=== PATIENT | male | born 1980 | race Caucasian/White ===

== ENCOUNTER 2016-11-15 21:54 | Emergency (ER) | payer BC, OTHER ==
[~2016-11-15] VITALS: Ht 172.7 cm; Wt 75.0 kg
[~2016-11-15 21:54] MED LIST: BACTRIM DS 8001 TAB PO; CEPHALEXIN500 M1 PO; FLEXERIL10 MG PO; NKDA; NO HOME MEDICATIONS; NORCO 325 MG-7.1 TAB PO; PERCOCET 325 MG1 TA2 PO; SEPTRA DS 8001 TAB PO
[2016-11-15 21:57] VITALS: BP 126/78; TEMP 97.8
[2016-11-15] MEDS ORDERED: PERCOCET 325 MG1 TA2 PO (22:17)
[2016-11-15 22:29] VITALS: PULSE 92
== END 2016-11-15 22:29 | disposition home or self-care (01) ==
LOC: COL.ER 21:54
DX: M54.5 Low back pain (principal); Z87.39 Personal history of other diseases of the musculoskeletal system and connective tissue; Z98.52 Vasectomy status
CPT/HCPCS: J2270

== ENCOUNTER 2017-05-11 16:40 | Emergency (ER) | payer BC ==
[~2017-05-11] VITALS: Ht 172.7 cm; Wt 77.3 kg
[2017-05-11 16:43] VITALS: TEMP 98.1
[2017-05-11 17:20] LABS: BASO % 0.3 % (0.0-2.0); EOS % 0.1 % (0-4.0); HEMATOCRIT 47.1 % (42.0-52.0); HEMOGLOBIN 16.6 g/dl (13.5-18.0); LYMPH # 0.3 (1.2-3.4); LYMPH % 2.8 % (20.0-51.0); MEAN CELL VOLUME 85 fl (80.0-100.0); MEAN CORPUSCULAR HEMOGLOBIN 30 pg (27.0-31.0); MEAN CORPUSCULAR HGB CONC 35 g/dl (33.0-37.0); MEAN PLATELET VOLUME 12.5 fl (7.4-10.4); MONO # 0.5 (0.1-0.6); MONO % 5.3 % (1.7-9.3); PLATELET COUNT 170 K/mm3 (130-400); RED BLOOD COUNT 5.53 M/mm3 (4.20-5.60); REDCELL DISTRIBUTION WIDTH-CV 12.6 % (11.5-14.5)
[2017-05-11 17:35] LABS: ALBUMIN 5.2 gm/dL (3.5-5.0); C-REACTIVE PROTEIN 2.6 mg/dL (0.0-0.9); CALCIUM 9.4 mg/dL (8.4-10.2); CREATININE, serum 1.12 mg/dL (0.66-1.25); POTASSIUM 4.2 mmol/L (3.4-5.0); TOTAL PROTEIN 8.3 gm/dL (6.4-8.2)
[2017-05-11 19:04] VITALS: BP 124/74; PULSE 110
== END 2017-05-11 19:09 | disposition home or self-care (01) ==
LOC: COL.ER 16:40
PROVIDERS: Emergency Medicine
DX: R10.13 Epigastric pain (principal); R19.7 Diarrhea, unspecified; R11.2 Nausea with vomiting, unspecified
CPT/HCPCS: J1170; J1885; J2405; J7030

== ENCOUNTER 2017-08-20 20:41 | Emergency (ER) | payer MEDICAID ==
[~2017-08-20] VITALS: Ht 172.7 cm; Wt 75.0 kg
[2017-08-20] MEDS ORDERED: NEURONTIN300 MG/CAP PO (20:53)
[2017-08-20 21:40] LABS: COLLECTION METHOD CLEAN CATCH
[2017-08-20 21:47] LABS: PH 6 (5-8); SQUAMOUS EPITHELIAL None Seen /hpf; URINE APPEARANCE Clear; URINE BACTERIA None Seen /hpf; URINE BILIRUBIN Negative (NEGATIVE); URINE BLOOD Negative (NEGATIVE); URINE COLOR Yellow; URINE GLUCOSE Negative (NEGATIVE); URINE KETONE Negative (NEGATIVE); URINE LEUKOCYTE ESTERASE Negative (NEGATIVE); URINE NITRATE Negative (NEGATIVE); URINE PROTEIN(semi-quant) Negative (NEGATIVE); URINE RBC 0-2 /hpf; URINE UROBILINOGEN Negative (NEGATIVE)
[2017-08-20] MEDS ORDERED: NORCO 325 MG-51 TAB PO (22:09)
[2017-08-20 22:50] VITALS: BP 124/80; PULSE 91; TEMP 98.4
== END 2017-08-20 22:52 | disposition home or self-care (01) ==
LOC: COL.ER 20:41
PROVIDERS: Nurse Practitioner
DX: M54.5 Low back pain (principal); Z98.890 Other specified postprocedural states; X50.3XXA Overexertion from repetitive movements, initial encounter; Y92.89 Other specified places as the place of occurrence of the external cause; Y99.0 Civilian activity done for income or pay
CPT/HCPCS: J1885; J2360

== ENCOUNTER 2017-10-21 14:32 | Emergency (ER) | payer MEDICAID ==
[~2017-10-21] VITALS: Ht 172.7 cm; Wt 77.3 kg
[~2017-10-21 14:32] MED LIST changes: +NEURONTIN300 MG/CAP PO; +NORCO 325 MG-51 TAB PO
[2017-10-21 14:34] VITALS: BP 142/78; PULSE 89; TEMP 98.3
[2017-10-21] MEDS ORDERED: MEDROL 4MG DOSPA4 MG PO (16:07)
[2017-10-21] MEDS ORDERED: FLEXERIL 1010 MG/TAB PO (16:07)
== END 2017-10-21 16:32 | disposition home or self-care (01) ==
LOC: COL.ER 14:32
DX: M54.31 Sciatica, right side (principal); Z98.890 Other specified postprocedural states
CPT/HCPCS: J1885; J2360

== ENCOUNTER → 2017-11-18 | Outpatient (CLI) | payer MEDICAID ==
[~2017-11-18] MED LIST changes: +FLEXERIL 1010 MG/TAB PO; +MEDROL 4MG DOSPA4 MG PO
== END ==
LOC: MHCPAIN 10:35
DX: M54.16 Radiculopathy, lumbar region (principal); M53.3 Sacrococcygeal disorders, not elsewhere classified
CPT/HCPCS: J1100; J2250; J3010; Q9967

== ENCOUNTER 2017-11-23 18:44 | Emergency (ER) | payer MEDICAID ==
[~2017-11-23] VITALS: Ht 172.7 cm; Wt 77.3 kg
[2017-11-23 18:48] VITALS: BP 127/84; TEMP 98.3
[2017-11-23] MEDS ORDERED: NORCO 325 MG-7.1 TAB PO (19:18)
[2017-11-23] MEDS ORDERED: NEURONTIN300 MG/CAP PO (19:22)
[2017-11-23 19:33] VITALS: PULSE 102
== END 2017-11-23 19:33 | disposition home or self-care (01) ==
LOC: COL.ER 18:44
DX: M54.17 Radiculopathy, lumbosacral region (principal); Z98.890 Other specified postprocedural states

== ENCOUNTER → 2017-12-01 | Outpatient (CLI) | payer MEDICAID | LOC: MHCPAIN 10:51 | DX: G89.29 Other chronic pain (principal); M47.817 Spondylosis without myelopathy or radiculopathy, lumbosacral region; M54.16 Radiculopathy, lumbar region; M53.3 Sacrococcygeal disorders, not elsewhere classified; M96.1 Postlaminectomy syndrome, not elsewhere classified | CPT/HCPCS: G0463 ==

== ENCOUNTER 2017-12-27 11:15 | Outpatient (RCR) | payer MEDICAID ==
[2018-02-17] MEDS ORDERED: NORCO 325 MG-51 TAB PO (20:41)
== END 2018-02-28 | disposition home or self-care (01) ==
LOC: WSC
DX: M47.26 Other spondylosis with radiculopathy, lumbar region (principal); M47.898 Other spondylosis, sacral and sacrococcygeal region; M53.3 Sacrococcygeal disorders, not elsewhere classified; M96.1 Postlaminectomy syndrome, not elsewhere classified; G89.29 Other chronic pain

== ENCOUNTER 2018-02-17 19:54 | Emergency (ER) | payer MEDICAID ==
[~2018-02-17] VITALS: Ht 172.7 cm; Wt 81.8 kg
[2018-02-17 19:57] VITALS: BP 139/78; TEMP 97.9
[2018-02-17] MEDS ORDERED: NORCO 325 MG-51 TAB PO (20:41)
[2018-02-17 21:02] VITALS: PULSE 86
== END 2018-02-17 21:02 | disposition home or self-care (01) ==
LOC: COL.ER 19:54
DX: M54.31 Sciatica, right side (principal); Z79.899 Other long term (current) drug therapy

== ENCOUNTER → 2018-02-28 | Outpatient (CLI) | payer MEDICAID | LOC: MHCPAIN 10:03 | DX: G89.29 Other chronic pain (principal); M47.817 Spondylosis without myelopathy or radiculopathy, lumbosacral region; M54.16 Radiculopathy, lumbar region; M53.3 Sacrococcygeal disorders, not elsewhere classified; M96.1 Postlaminectomy syndrome, not elsewhere classified | CPT/HCPCS: G0463 ==

== ENCOUNTER → 2018-03-14 | Outpatient (CLI) | payer MEDICAID | LOC: MHCPAIN 11:08 | DX: M47.817 Spondylosis without myelopathy or radiculopathy, lumbosacral region (principal); M54.16 Radiculopathy, lumbar region | CPT/HCPCS: J1100; Q9967 ==

== ENCOUNTER → 2018-09-26 | Outpatient (CLI) | payer MEDICAID | LOC: MHCPAIN 10:12 | DX: G89.29 Other chronic pain (principal); M47.817 Spondylosis without myelopathy or radiculopathy, lumbosacral region; M54.16 Radiculopathy, lumbar region; M53.3 Sacrococcygeal disorders, not elsewhere classified; M96.1 Postlaminectomy syndrome, not elsewhere classified | CPT/HCPCS: G0463 ==

== ENCOUNTER 2019-04-17 17:43 | Emergency (ER) | payer MEDICAID ==
[~2019-04-17] VITALS: Ht 172.7 cm; Wt 77.3 kg
[2019-04-17] MEDS ORDERED: BACTRIM DS 8001 TAB PO (19:27)
[2019-04-17 20:09] VITALS: BP 132/92; PULSE 97; TEMP 98.4
== END 2019-04-17 20:09 | disposition home or self-care (01) ==
LOC: COL.ER 17:43
DX: H60.92 Unspecified otitis externa, left ear (principal); H60.02 Abscess of left external ear; Z23 Encounter for immunization